=== PATIENT | female | born 1995 | race Caucasian/White ===

== ENCOUNTER 2021-08-09 17:21 | Emergency (ER) | payer SELFPAY ==
[~2021-08-09] VITALS: Ht 162.6 cm; Wt 56.7 kg
[2021-08-09 18:00] VITALS: BP 133/84
--- NOTE | 2021-08-09 19:55 | NUR ---
CALLED PT TO TRIAGE ROOM. NO ANSWER
--- NOTE | 2021-08-09 20:25 | NUR ---
CALLED PT TO TRIAGE ROOM. NO ANSWER
--- NOTE | 2021-08-09 20:44 | NUR ---
CALLED PT TO TRIAGE ROOM. NO ANSWER
== END 2021-08-09 20:44 | disposition left against medical advice (07) ==
LOC: ER 17:25
DX: Z53.21 Procedure and treatment not carried out due to patient leaving prior to being seen by health care provider (principal)